=== PATIENT | female | born 1990 | race Caucasian/White ===

== ENCOUNTER 2018-12-14 13:20 | Emergency (ER) | payer SELFPAY ==
[2018-12-14] MEDS ORDERED: Sodium Chloride 0.9% 10 ML Syringe FLUSH PRN (14:03)
--- NOTE | 2018-12-14 14:35 | EDM.PDOC ---
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 with bloody discharge which started around 10 AM. She reports using the restroom and having some blood on the toilet paper. She also noted BRB in the toilet with clots. No tissue noted in the toilet. She reports her last menstrual period was October 09 which would make her 9 week and 3 days by dates. She has 2 prior children and has never had any bleeding like this in the past. She reports some placental problems and is unsure what exactly they were with her last . She reports there was a "extra piece of placenta". She does have a history of fibromyalgia and was on Zoloft and gabapentin, however she has stopped this prior to . She is taking a vitamin. Her recently moved up here from [place] and she does not have a primary care provider or her OB provider here. She has not seen any OB with this . She reports she only has pain with her fibromyalgia however she has noted cramping throughout this . This is a change from prior pregnancies. She also does note that she has been on bed rest before at 32 weeks. She denies having taking any program in the past. She does report an increase smell with her urine but no pain or real changes in urinary symptoms. She reports 2 days of back pain bilaterally. She also states that today she has had some upper abdominal pain. 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 Denies: Shortness of Breath, Wheezing, Cough , Sputum Cardiovascular: Reports: No Symptoms. Denies: Chest Pain, Dyspnea on Exertion, Edema Endocrine: Reports: No Symptoms GI/Abdominal: Reports: No Symptoms. Denies: Abdominal Pain, Constipation, Diarrhea, Nausea, Vomiting : Reports: Discharge, Flank Pain, Hematuria. Denies: Frequency, Urgency, Urinary Retention Musculoskeletal: Reports: Muscle Pain (Fibromyalgia ) Skin: Reports: No Symptoms ED EXAM - Physical Exam Exam: See Below Exam Limited By: No Limitations General Appearance: Alert, WD/WN, No Apparent Distress Ears: Normal External Exam Nose: Normal Inspection, Normal Mucosa Throat/Mouth: Normal Inspection Head: Atraumatic, Normocephalic Neck: Normal Inspection, Supple, Non-Tender, Full Range of Motion Respiratory/Chest: No Respiratory Distress, Lungs Clear, Normal Breath Sounds, No Accessory Muscle Use, Chest Non-Tender Cardiovascular: Normal Peripheral Pulses, Regular Rate, Rhythm, No Edema, No Gallop, No JVD, No Murmur, No Rub GI/Abdominal Exam: Normal Bowel Sounds, Soft, Non-Tender, No Organomegaly, No Distention, No Abnormal Bruit, No Mass, Pelvis Stable Rectal Exam: Deferred (Female) Exam: Normal External Exam, Normal Speculum Exam, Vaginal Bleeding ( very minimal ), Other (DASIA De Luna in room durring exam ). No: Products of Conception, Tissue Present in Cervix/Vagina Back Exam: Normal Inspection, Full Range of Motion, CVA Tenderness (L), CVA Tenderness (R) Extremities: Normal Inspection, Normal Range of Motion, Non-Tender, Normal Capillary Refill, No Pedal Edema Course - Vital Signs Last Recorded V/S: Last Vital Signs Temp 98.0 F 12/14/18 13:34 Pulse 91 12/14/18 13:34 Resp 20 12/14/18 13:34 BP 117/63 12/14/18 13:34 Pulse Ox 100 12/14/18 13:34 - Orders/Labs/Meds Orders: Active Orders 24 hr Category Date Time Status Peripheral IV Care [RC] . DIRECTED Care 12/14/18 14:03 Active PATIENT RETYPE [BBK] Routine Lab 12/14/18 14:51 Ordered Sodium Chloride 0.9% [Saline Flush] Med 12/14/18 14:03 Active 10 ml FLUSH ASDIRECTED PRN Peripheral IV Insertion Adult [OM.PC] Routine Oth 12/14/18 14:03 Ordered Medication Orders Sodium Chloride (Saline Flush) 10 ml FLUSH ASDIRECTED PRN PRN Reason: Keep Vein Open Last Admin: 12/14/18 15:03 Dose: 10 ml Labs: Laboratory Tests 12/14/18 12/14/18 12/14/18 Range/Units 14:10 14:10 14:10 WBC 8.77 (3.98-10.04) K/mm3 RBC 4.08 (3.98-5.22) M/mm3 Hgb 11.6 (11.2-15.7) gm/L Hct 35.6 (34.1-44.9) % MCV 87.3 (79.4-94.8) fl MCH 28.4 (25.6-32.2) pg MCHC 32.6 (32.2-35.5) g/dl RDW Std Deviation 43.0 (36.4-46.3) fL Plt Count 367 (182-369) K/mm3 MPV 9.2 L (9.4-12.3) fl Neut % (Auto) 54.3 (34.0-71.1) % Lymph % (Auto) 37.4 (19.3-51.7) % [place] % (Auto) 5.5 (4.7-12.5) % Eos % (Auto) 2.4 (0.7-5.8) Baso % (Auto) 0.2 (0.1-1.2) % Neut # (Auto) 4.76 (1.56-6.13) K/mm3 Lymph # (Auto) 3.28 (1.18-3.74) K/mm3 [place] # (Auto) 0.48 H (0.24-0.36) K/mm3 Eos # (Auto) 0.21 (0.04-0.36) K/mm3 Baso # (Auto) 0.02 (0.01-0.08) K/mm3 HCG, Quant 07000.0 mIU/mL Urine Color (Yellow) Urine Appearance (Clear) Urine pH (5.0-8.0) Ur Specific [place] (1.005-1.030) Urine Protein (Negative) Urine Glucose (UA) (Negative) Urine Ketones (Negative) Urine Occult Blood (Negative) Urine Nitrite (Negative) Urine Bilirubin (Negative) Urine Urobilinogen (0.2-1.0) Ur Leukocyte Esterase (Negative) Urine RBC (0-5) /hpf Urine WBC (0-5) /hpf Ur Epithelial Cells (0-5) /hpf Urine Bacteria (FEW) /hpf Urine Mucus (FEW) /hpf Blood Type A POSITIVE 12/14/18 Range/Units 14:20 WBC (3.98-10.04) K/mm3 RBC (3.98-5.22) M/mm3 Hgb (11.2-15.7) gm/L Hct (34.1-44.9) % MCV (79.4-94.8) fl MCH (25.6-32.2) pg MCHC (32.2-35.5) g/dl RDW Std Deviation (36.4-46.3) fL Plt Count (182-369) K/mm3 MPV (9.4-12.3) fl Neut % (Auto) (34.0-71.1) % Lymph % (Auto) (19.3-51.7) % [place] % (Auto) (4.7-12.5) % Eos % (Auto) (0.7-5.8) Baso % (Auto) (0.1-1.2) % Neut # (Auto) (1.56-6.13) K/mm3 Lymph # (Auto) (1.18-3.74) K/mm3 [place] # (Auto) (0.24-0.36) K/mm3 Eos # (Auto) (0.04-0.36) K/mm3 Baso # (Auto) (0.01-0.08) K/mm3 HCG, Quant mIU/mL Urine Color Yellow (Yellow) Urine Appearance Clear (Clear) Urine pH 6.0 (5.0-8.0) Ur Specific [place] > or = 1.030 (1.005-1.030) Urine Protein Negative (Negative) Urine Glucose (UA) Negative (Negative) Urine Ketones Negative (Negative) Urine Occult Blood 1+ H (Negative) Urine Nitrite Negative (Negative) Urine Bilirubin Negative (Negative) Urine Urobilinogen 0.2 (0.2-1.0) Ur Leukocyte Esterase Negative (Negative) Urine RBC 5-10 H (0-5) /hpf Urine WBC 0-5 (0-5) /hpf Ur Epithelial Cells 5-10 H (0-5) /hpf Urine Bacteria Few (FEW) /hpf Urine Mucus Not seen (FEW) /hpf Blood Type Meds: Medications Generic Name Dose Route Start Last Admin Trade Name Freq PRN Reason Stop Dose Admin Sodium Chloride 10 ml 12/14/18 14:03 12/14/18 15:03 Saline Flush FLUSH 10 ml ASDIRECTED PRN Administration Keep Vein Open - Re-Assessments/Exams Free Text/Narrative Re-Assessment/Exam: Lab results are back with a hemoglobin noted to be 11.6 and no white count. Quantitative hCG is 56,046. UA is negative however she is concentrated with a specific gravity greater than or equal to 1.030. 1+ occult blood 5-10 RBCs and 5-10 epithelial cells are noted however no leukocyte esterase and no nitrite. ABO is A positive so Rhogam is not indicated. Still awaiting ultrasound results. 12/14/18 15:18 Transvaginal ultrasound results are back and interpret her by Dr. Martin as "1. Single intrauterine gestation. Dates as noted above (10 weeks 0 days). 2. No complicating processes seen by ultrasound at this time." 12/14/18 15:55 Departure - Departure Time of Disposition: 15:57 Disposition: Home, Self-Care 01 Condition: Good Clinical Impression: Threatened - Discharge Information *PRESCRIPTION DRUG MONITORING PROGRAM REVIEWED*: No *COPY OF PRESCRIPTION DRUG MONITORING REPORT IN PATIENT DESHAWN: No Instructions: Threatened Miscarriage, Vaginal Bleeding During , First Trimester, [id number] Referrals: PCP,None [Primary Care Provider] - Forms: ED Department Discharge Additional Instructions: He was seen in the ED today for vaginal bleeding and back pain. Labs were obtained and you have no signs of infection. He did not have urinary tract infection. Pelvic exam was obtained and although some difficulty was had observing the cervix there is no gross bleeding or tissue noted in the vaginal vault. On these early measurements your is measuring 10 weeks and 0 days. Ultrasound shows a single intrauterine gestation. No concerns noted on abdominal ultrasound. As we discussed, if he were to begin significantly bleeding he should return to the emergency room or contact 911. Unfortunately if he were to begin having a spontaneous there is not much we can do. Suggest you follow-up with an OB physician in the near future. We discussed both clinics and you decided on [facility]. We have several providers available. He can contact our clinic tomorrow at [phone] to schedule an appointment. Continue taking your pre- vitamin. Stay hydrated and drink plenty of water. Should any other concerns arise contact the OB department or return to the ED. - My Orders Last 24 Hours: My Active Orders 12/14/18 14:03 Peripheral IV Care [RC] . DIRECTED Sodium Chloride 0.9% [Saline Flush] 10 ml FLUSH ASDIRECTED PRN Peripheral IV Insertion Adult [OM.PC] Routine 12/14/18 14:51 PATIENT RETYPE [BBK] Routine - Assessment/Plan Last 24 Hours: My Active Orders 12/14/18 14:03 Peripheral IV Care [RC] . DIRECTED Sodium Chloride 0.9% [Saline Flush] 10 ml FLUSH ASDIRECTED PRN Peripheral IV Insertion Adult [OM.PC] Routine 12/14/18 14:51 PATIENT RETYPE [BBK] Routine
--- NOTE | 2018-12-14 15:39 | US ---
First trimester obstetrical ultrasound: Multiple real-time images were obtained transvaginally. Comparison: No previous study for current . Dates: LMP: LMP given as 10/09/18, RUDY 07/16/19, gestational age 9 weeks 3 days Current ultrasound: RUDY 07/12/19, gestational age 10 weeks 0 days Single intrauterine gestation is seen. Amniotic fluid volume is normal. Embryo and yolk sac are seen. No subchorionic hemorrhage is identified. Right maternal ovary is unremarkable. Left maternal ovary shows a 2.0 cm corpus luteum cyst. Measurements: [place]-rump length: 3.11 cm - 10 weeks 0 days Heart rate: 173 BPM Impression: 1. Single intrauterine gestation. Dates as noted above. 2. No complicating process is seen by ultrasound at this time. Diagnostic code #1
== END 2018-12-14 16:16 | disposition home or self-care (01) ==
LOC: JD.ED 13:20
DX: O20.0 Threatened abortion (principal); Z79.891 Long term (current) use of opiate analgesic; Z87.891 Personal history of nicotine dependence; Z3A.09 9 weeks gestation of pregnancy
CPT/HCPCS: 36415; 76817; 76817-26; 81001; 84702; 85025; 86900; 86901; 99283; 99284-25